=== PATIENT | male | born 1940 | race Caucasian/White ===

== ENCOUNTER 2024-08-16 11:10 | Inpatient (IN) | payer MEDICARE, BC ==
[~2024-08-16] VITALS: Ht 162.6 cm; Wt 63.5 kg
[2024-08-16 11:34] LABS: BASOPHILS % (AUTO) 0.8 % (0.0-2.0); EOSINOPHILS # (AUTO) 0.1 K/uL (0.0-0.7); EOSINOPHILS % (AUTO) 1.1 % (0.0-6.0); HEMATOCRIT 39 % (39-51); HEMOGLOBIN 13.1 g/dL (13.5-17.5); LYMPHOCYTES # (AUTO) 1.2 K/uL (0.8-4.8); LYMPHOCYTES % (AUTO) 23.7 % (20.0-44.0); MEAN CORPUSCULAR HEMOGLOBIN 31 PG (26.0-33.0); MEAN CORPUSCULAR HGB CONC 33 g/dl (31.0-36.0); MEAN CORPUSCULAR VOLUME 94 fL (80-96); MONOCYTES # (AUTO) 0.4 K/uL (0.1-1.30); MONOCYTES % (AUTO) 7.4 % (2.0-12.0); NEUTROPHILS # (AUTO) 3.5 K/uL (1.8-8.9); PLATELET COUNT (AUTO) 249 K/uL (150-450); RED BLOOD CELL COUNT(AUTO) 4.16 MIL/uL (4.5-6.0); RED CELL DISTRIBUTION WIDTH 15.9 % (11.5-15.0); WHITE BLOOD COUNT (AUTO) 5.2 K/uL (4.3-11.0)
[2024-08-16 13:19] LABS: ALANINE AMINOTRANSFERASE 19 U/L (12-78); ALBUMIN 3.6 g/dL (3.4-5.0); ALKALINE PHOSPHATASE 51 U/L (46-116); ASPARTATE AMINOTRANSFERASE 23 U/L (15-37); BILIRUBIN,DIRECT 0.2 mg/dL (0.0-0.2); BILIRUBIN,TOTAL 0.4 mg/dL (0.2-1.0); CALCIUM, SERUM 8.9 mg/dL (8.5-10.1); CARBON DIOXIDE 24 mmol/L (21-32); CREATININE 1.2 mg/dL (0.6-1.3); GLUCOSE 91 mg/dL (74-106); TOTAL PROTEIN, SERUM 7.6 g/dL (6.4-8.2); UREA NITROGEN, BLOOD 22 mg/dL (7-18)
[2024-08-16 13:25] LABS: SODIUM SERUM 143 mmol/L (136-145)
[2024-08-16 13:26] LABS: CHLORIDE 108 mmol/L (98-107); POTASSIUM 4.4 mmol/L (3.5-5.1)
[2024-08-16] MEDS ORDERED: MULT-213 PO (13:36)
[2024-08-16] MEDS ORDERED: FLUT16SP BNOSTRILS (13:36)
[2024-08-16] MEDS ORDERED: AMLO2.5T4 PO (13:36)
[2024-08-16] MEDS ORDERED: CHOL100062 PO (13:36)
[2024-08-16] MEDS ORDERED: METO25TA20 PO (13:36)
[2024-08-16] MEDS ORDERED: LOSA50TA39 PO (13:36)
[2024-08-16] MEDS ORDERED: APIX5TAB PO (13:36)
[2024-08-16] MEDS ORDERED: ROSU5TAB13 PO (13:36)
[2024-08-16] MEDS ORDERED: IPRA42SP BNOSTRILS (13:36)
[2024-08-16] MEDS ORDERED: ISOS30TA86 PO (13:36)
[2024-08-16] MEDS: NITROGLYCERIN 0.4 MG/TAB BOTTLE SL PRN (14:00)
[2024-08-16] MEDS ORDERED: NITROGLYCERIN 0.4 MG/TAB BOTTLE ONE (14:03)
[2024-08-16 14:25] VITALS: BP 135/79; TEMP 97.9; O2SAT 99
[2024-08-16] MEDS ORDERED: hydrALAZINE HCL IV 20 MG VIAL IV PRN (15:30)
[2024-08-16] MEDS ORDERED: ACETAMINOPHEN 325 MG TABLET PO PRN (15:30)
[2024-08-16] MEDS ORDERED: MORPHINE SULFATE INJ 2 MG/ML DISP.SYRIN IV PRN (15:30)
[2024-08-16] MEDS ORDERED: ONDANSETRON HCL/PF 4 MG/2 ML VIAL IVP PRN (15:30)
[2024-08-16] MEDS ORDERED: IOHEXOL-350 100 ML VIAL IV ONE (15:58)
[2024-08-16] MEDS ORDERED: CT SWABBABLE VALVE TRANS SET 1 EA INFUS.SET MC ONE (15:58)
[2024-08-16] MEDS ORDERED: IV NS 0.9% 250 ML IV ONE (15:58)
[2024-08-16] MEDS: METOPROLOL TARTRATE INJ 5 MG/5 ML AMPUL IVP PRN (16:00)
[2024-08-16] MEDS ORDERED: METOPROLOL TARTRATE INJ 5 MG/5 ML AMPUL ONE (16:01)
[2024-08-16] MEDS: ISOSORBIDE MONONITRATE (30MG) 30 MG TAB.SR.24H PO SCH (17:21)
[2024-08-16] MEDS: ATORVASTATIN 10 MG TABLET PO SCH (17:22)
[2024-08-16] MEDS: LOSARTAN POTASSIUM 50 MG TABLET PO SCH (17:23)
[2024-08-16] MEDS: METOPROLOL TARTRATE 25 MG TABLET PO SCH (17:23)
[2024-08-16 17:24] VITALS: BP 150/84
[2024-08-16] MEDS: AMLODIPINE BESYLATE 2.5 MG TABLET PO SCH (17:24)
[2024-08-16] MEDS: APIXABAN 5 MG TABLET PO SCH (17:28)
[2024-08-16] MEDS ORDERED: AMOX-430 PO (17:34)
[2024-08-16] MEDS: LIDOCAINE VISCOUS 2% UD 15 ML UDC MM STA (18:31)
[2024-08-16] MEDS ORDERED: HEPARIN SODIUM, PORCINE 5000 UNITS/1 ML VIAL SQ SCH (21:00)
== END 2024-08-16 18:58 | disposition home or self-care (01) | DRG 303 ==
LOC: ER 11:12 → TELE 13:45
PROVIDERS: ADMIT Internal Medicine; ATTEND Internal Medicine
DX: I25.119 Atherosclerotic heart disease of native coronary artery with unspecified angina pectoris (principal); I24.9 Acute ischemic heart disease, unspecified; I10 Essential (primary) hypertension; Z95.5 Presence of coronary angioplasty implant and graft; D64.9 Anemia, unspecified; Z66 Do not resuscitate; E78.5 Hyperlipidemia, unspecified; I25.10 Atherosclerotic heart disease of native coronary artery without angina pectoris; Z79.01 Long term (current) use of anticoagulants; Z79.899 Other long term (current) drug therapy; Z87.19 Personal history of other diseases of the digestive system
CPT/HCPCS: 36415; 71045-TC; 75574; 80048-TC; 80076-TC; 84484-TC; 85025-TC; 85378-TC; 93307-TC; G0378; J3490; J7050; Q9967